=== PATIENT | male | born 1990 ===

== ENCOUNTER 2025-07-13 14:02 | Outpatient (REF) | payer OTHER, SELFPAY ==
[2025-07-13 17:56] LABS: MANUAL DIFF FLAG NO
[2025-07-13 18:02] LABS: Hematocrit 43.9 % (42.0-52.0); Hemoglobin 15.4 g/dl (14.0-18.0); Imm Gran Abs Auto 0.02 X10*3/uL (0.00-0.03); Imm Gran Pct Auto 0.2 % (0.0-0.4); Lymphocytes Absolute Auto 1.8 X10*3/uL (1.2-4.9); Mean Corpuscular HGB Conc 35.1 g/dl (31.0-36.0); Mean Corpuscular Hemoglobin 30.8 pg (27.0-33.0); Mean Corpuscular Volume 87.8 fL (80.0-98.0); NRBC Abs Auto 0.000 X10*3/uL (0.0-0.012); NRBC Pct Auto 0.0 /100WBC (0.0-0.2); Platelet Count 336 X10*3/uL (160-400); Red Blood Count 5.00 X10*6/uL (4.60-5.80); White Blood Count 9.0 X10*3/uL (4.8-10.8)
[2025-07-13 18:17] LABS: Alanine Aminotransferase 38 U/L (0-40); Albumin Level 4.9 g/dL (3.5-5.0); Alkaline Phosphatase 74 U/L (39-117); Anion Gap 15 (12-20); Aspartate Amino Transferase 31 U/L (5-37); Blood Urea Nitrogen 18 mg/dL (9-16); Calcium 9.2 mg/dL (8.4-10.2); Carbon Dioxide 24 mmol/L (22-29); Chloride 105 mmol/L (96-108); Cholesterol 221 mg/dL (<200); Estimated Glomerular Filt Rate > 60; HDL Cholesterol 25 mg/dL (>40); Magnesium 2.1 mg/dL (1.6-2.6); Potassium 3.7 mmol/L (3.3-5.1); Sodium 140 mmol/L (135-145); Total Protein 7.9 g/dL (6.5-8.0); Triglycerides 175 mg/dL (<150)
[2025-07-13 18:20] LABS: Appearance Urine Clear; Glucose Urine UA Negative (Negative); PH 6.5 (5.0-9.0); Specific Gravity - Urine 1.025 (1.005-1.025)
[2025-07-16 04:11] LABS: HBS Num1 24.89 mIU/mL (0-7.99); HBsAGNum1 0.48 S/CO (0.00-0.99); Hepatitis B Surface Antigen Negative (Negative); ~HepC Num1 0.11 S/CO (0.00-0.79); ~Hepatitis B Surface Antibody REACTIVE (Nonreactive); ~Hepatitis C Antibody Nonreactive (Nonreactive)
== END 2025-07-13 14:03 | disposition home or self-care (01) ==
LOC: HO.HKASLDS 14:02
PROVIDERS: Visit Provider Student in an Organized Health Care Education/Training Program
DX: Z00.00 Encounter for general adult medical examination without abnormal findings (principal); Z01.89 Encounter for other specified special examinations; Z71.82 Exercise counseling; Z71.89 Other specified counseling; Z13.1 Encounter for screening for diabetes mellitus; Z13.220 Encounter for screening for lipoid disorders; Z13.6 Encounter for screening for cardiovascular disorders; M25.571 Pain in right ankle and joints of right foot; R03.0 Elevated blood-pressure reading, without diagnosis of hypertension; E66.811 Obesity, class 1; R00.0 Tachycardia, unspecified; Z68.34 Body mass index [BMI] 34.0-34.9, adult
CPT/HCPCS: 36415; 80053; 80061; 81003; 83036; 83735; 85025; 86706; 86803; 87340; 99202

== ENCOUNTER 2025-07-13 14:02 | Outpatient (AMB) | payer OTHER, SELFPAY ==
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
[2025-07-13 14:33] VITALS: BP 146/98; PULSE 107; RESP 16; TEMP 36.4; O2SAT 97; BMI 34.7
== END 2025-07-13 14:58 | disposition home or self-care (01) ==
LOC: HO.HMCFMS 14:02
PROVIDERS: PCP Student in an Organized Health Care Education/Training Program; Visit Provider Student in an Organized Health Care Education/Training Program
DX: M25.571 Pain in right ankle and joints of right foot (principal); R03.0 Elevated blood-pressure reading, without diagnosis of hypertension; E66.811 Obesity, class 1; Z68.34 Body mass index [BMI] 34.0-34.9, adult; R00.0 Tachycardia, unspecified

== ENCOUNTER 2025-07-30 13:36 | Outpatient (AMB) | payer OTHER, SELFPAY ==
--- NOTE | 2025-07-30 13:37 | A.OFFPC_ITS ---
Vital Signs 07/30/25 13:38 Height 5 ft 8.27 in Weight 234 lb 2 oz BMI 35.3 BP 150/78 H Blood Pressure Location Lt brachial Position Sitting Respiration 16 Pulse 127 H Pulse Source Pulse Oximeter Temp 98 F Temp Source Oral Pulse Oximetry (%) 98 Oxygen Delivery Method Room Air Intake Visit Reasons: 2 week follow up Intake Note: pt visit today for leg cramp. lab work requested and xr requested. 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 Prediabetes: - Hemoglobin A1c is 5.8%, indicating pre diabetes. - Advised to reduce carbohydrate and sug ar intake to lower A1c levels. Hyperlipidemia: - Triglycerides are at 175 mg/dL, total cholesterol at 221 mg/dL, and LDL cholesterol at 160 mg/dL, indicating hyperlipidemia. - HDL cholesterol is low at 25 mg/dL. - Dietary modifications recommended, inc luding reducing intake of cheese, dairy, and eggs, and increasing leafy greens. Hypertension: - Blood pressure recorded at 150/78 mmHg , indicating hypertension. - Blood pressure monitoring at home advi sed with a cuff to be provided. - Lifestyle changes including exercise a nd dietary adjustments recommended. Preventative Care: - Hepatitis B vaccination recommended du e to nonreactive antibody status. Review of Systems 10-point ROS reviewed and negative excep t as noted in HPI Past Medical History Health Maintenance - Recommended lifestyle changes include reducing carbohydrate and sugar intake, increasing physical activity to 150 minutes per week, and dietary modifications to lower cholesterol levels. - Hepatitis B vaccination advised due to nonreactive antibody status. Physical Exam General: Well-appearing, in no acute distress. Vital signs: Blood pressure is high today at 150/78. HEENT: Normocephalic, atraumatic. PERRLA, EOMI. Conjunctiva clear, sclera anicteric. Oropharynx clear, mucous membranes moist. TMs intact bilaterally. Neck: Supple, no lymphadenopathy, no thyromegaly, no JVD or carotid bruits. Cardiovascular: RRR, normal S1/S2, no murmurs, rubs, or gallops. Peripheral pulses 2+ and symmetric. No edema. Respiratory: Lungs clear to auscultation bilaterally, no wheezes, rales, or rhonchi. Normal effort. Abdomen: Soft, non-tender, non-distended. Normoactive bowel sounds. No hepatosplenomegaly, no masses. MSK: Full range of motion, no joint swelling or deformity. Normal gait. Skin: Warm, dry, intact. No rashes, lesions, or pallor. Neuro: Alert and oriented x3. Cranial nerves II-XII intact. Strength 5/5 throughout. Sensation intact. Reflexes 2+ symmetric. Normal coordination and gait. Psych: Appropriate mood and affect. Normal judgment and insight. Plan 1. encounter for lab results 2. prediabetes - Advise dietary modifications to reduce carbohydrate and sugar intake to lower A1c levels. - Monitor A1c levels every three months to assess progress. 3. Hyperlipidemia - Recommend dietary changes to reduce in take of high-fat foods and increase consumption of leafy greens. - Re-evaluate lipid profile in future vi sits to monitor improvement. 4. Hypertension - Provide blood pressure cuff for home m onitoring, with instructions to record readings twice daily. - Encourage lifestyle modifications incl uding regular exercise and dietary adjustments. - Follow-up in two weeks to review blood pressure readings and adjust management as needed. 5. Preventative Care - Administer Hepatitis B vaccine due to nonreactive antibody status. Discussion Notes I discussed with the patient the importance of dietary modifications to manage prediabetes and hyperlipidemia, emphasizing the reduction of carbohydrates, sugars, and high-fat foods. We also talked about the need for regular exercise and the use of a blood pressure cuff for home monitoring. I recommended a follow-up visit in two weeks to review blood pressure readings and adjust management as needed. Additionally, I advised the patient to receive the Hepatitis B vaccine due to nonreactive antibody status. Patient Instructions - Reduce intake of carbohydrates and sug ars to help lower A1c levels. - Follow a low-fat diet, increasing leaf y greens and reducing cheese, dairy, and eggs. - Exercise for at least 150 minutes per week, aiming for moderate intensity. - Use the blood pressure cuff to monitor blood pressure twice daily and record the readings. - Return for a follow-up visit in two we eks with recorded blood pressure readings. - Receive the Hepatitis B vaccine as rec ommended. PFSH Family History Father Mini stroke Mother Diabetes Stroke High cholesterol Social History Housing: Condominium Alcohol intake: current Alcohol intake frequency: does not drink Patient Tobacco Use Status: Never used Tobacco service: No Current occupational status: unemployed Cognitive needs: No Hearing needs: No Vision needs: Yes (rx glasses) Questionnaire PHQ-9 Over the last 2 weeks, how often have you been bothered by any of the following problems? 1. Little interest or pleasure in doing things: not at all 2. Feeling down, depressed, or hopeless: not at all 3. Trouble falling or staying asleep, or sleeping too much: not at all 4. Feeling tired or having little energy: not at all 5. Poor appetite or overeating: not at all 6. Feeling bad about yourself - or that you are a failure or have let yourself or your family down: not at all 7. Trouble concentrating on things, such as reading the newspaper or watching television: not at all 8. Moving or speaking so slowly that other people could have noticed. Or the opposite - being so fidgety or restless that you have been moving around a lot more than usual: not at all 9. Thoughts that you would be better off or of hurting yourself in some way: not at all Total score: 0 Source: Developed by Drs. Shen Silva, Bruna Steel, Gwyn Khalil and colleagues, with an educational jennifer from [employer]. Thrive Questionnaire Date Thrive assessed: 07/24/25 I am a: Patient What is your living situation today?: I have a steady place to live Within the past 12 months, did the food you bought not last and you didn't have the money to get more?: I choose not to answer this question Within the past 12 months, did you worry whether your food would run out before you got money to buy more?: I choose not to answer this question Do you have trouble paying for medicines?: No Do you have trouble getting transportation to medical appointments?: No Do you have trouble paying your heating and electricity bill?: No Do you have trouble taking care of your child, family member or friend?: No Do you have trouble with day-to-day activities such as bathing, preparing meals, shopping, managing finances, etc.?: No Are you currently unemployed and looking for a job?: I choose not to answer this question Are you interested in more education?: I choose not to answer this question Please select the resources that you would like help with: None Currently or been in a relationship where the following occur: I choose not to answer THRIVE Score: 0 AUDIT C Alcohol Use Questionnaire (AUDIT-C) 1. How often do you have a drink containing alcohol?: Never Total Score: 0 JAMIN-7 AMB Questionnaire JAMIN-7 Date JAMIN - 7 assessed: 07/13/25 Feeling nervous, anxious, or on edge: 0 = Not at all Not being able to stop or control worryin = Not at all Worrying too much about different things: 0 = Not at all Trouble relaxin = Not at all Being so restless that it is hard to sit still: 0 = Not at all Becoming easily annoyed or irritable: 0 = Not at all Feeling afraid as if something awful might happen: 0 = Not at all Total JAMIN-7 score (0-4 normal; 5-9 mild; 10-14 moderate; 15-21 severe): 0 Source: Developed by Drs. Shen Silva, Bruna Steel, Gwyn Khalil and colleagues, with an educational jennifer from [employer]. Physical exam (Primary Care) Vital Signs: Last Vital Signs Temp 98 F 07/30/25 13:38 Pulse 127 H 07/30/25 13:38 Resp 16 07/30/25 13:38 BP 150/78 H 07/30/25 13:38 Pulse Ox 98 07/30/25 13:38 Oxygen Delivery Method Room Air 07/30/25 13:38 BMI result Body Mass Index 35.3 Tobacco/Smoking Status: Tobacco use Status Tobacco use date assessed 07/13/25 07/30/25 13:44 Patient Tobacco Use Status Never used Tobacco 07/30/25 13:44 PHQ-9: PHQ-9 Score PHQ-9: Total score 0 07/30/25 13:44 Thrive Assessment: Date of Thrive Assessment Date Thrive assessed 07/24/25 07/30/25 13:44 Currently or been in a relationship where the following occur: I choose not to answer Coding Level of Care Code Est Pt Level 3 (08940) Diagnoses Encounter to discuss test results Z71.2 Prediabetes R73.03 Mixed hyperlipidemia E78.2 Elevated blood pressure reading R03.0 Class 2 obesity E66.812 Assessment & Plan Assessment & Plan (1) Encounter to discuss test results: Code(s): Z71.2 - Person consulting for explanation of examination or test findings (2) Prediabetes: Code(s): R73.03 - Prediabetes (3) Mixed hyperlipidemia: Code(s): E78.2 - Mixed hyperlipidemia (4) Elevated blood pressure reading: Code(s): R03.0 - Elevated blood-pressure reading, without diagnosis of hypertension (5) Class 2 obesity: Code(s): E66.812 - Obesity, class 2 Plan Medications: New blood pressure test kit-large ([employer] Blood Pressure Monitor kit) As directed 1 ea 0RF
[2025-07-30 13:38] VITALS: BP 150/78; PULSE 127; RESP 16; TEMP 36.6; O2SAT 98; BMI 35.3
== END 2025-07-30 13:54 | disposition home or self-care (01) ==
LOC: HO.HMCFMS 13:37
PROVIDERS: Visit Provider Student in an Organized Health Care Education/Training Program
DX: R73.03 Prediabetes (principal); E78.2 Mixed hyperlipidemia; E66.812 Obesity, class 2; Z68.33 Body mass index [BMI] 33.0-33.9, adult; R03.0 Elevated blood-pressure reading, without diagnosis of hypertension; Z71.2 Person consulting for explanation of examination or test findings

== ENCOUNTER → 2025-07-30 13:36 | Outpatient (BNVA) | payer OTHER, SELFPAY | PROVIDERS: Visit Provider Student in an Organized Health Care Education/Training Program | DX: Z71.2 Person consulting for explanation of examination or test findings (principal); R73.03 Prediabetes; E78.2 Mixed hyperlipidemia; R03.0 Elevated blood-pressure reading, without diagnosis of hypertension; E66.812 Obesity, class 2; Z68.35 Body mass index [BMI] 35.0-35.9, adult; Z13.30 Encounter for screening examination for mental health and behavioral disorders, unspecified | CPT/HCPCS: 99212 ==

== ENCOUNTER 2025-08-01 12:23 | Outpatient (AMB) | payer OTHER, SELFPAY ==
[2025-08-01 12:35] VITALS: BMI 35.6
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
== END 2025-08-01 13:03 | disposition home or self-care (01) ==
PROVIDERS: PCP Student in an Organized Health Care Education/Training Program; Visit Provider Student in an Organized Health Care Education/Training Program
DX: M76.811 Anterior tibial syndrome, right leg (principal); M21.41 Flat foot [pes planus] (acquired), right foot; M21.42 Flat foot [pes planus] (acquired), left foot; M54.16 Radiculopathy, lumbar region; M67.01 Short Achilles tendon (acquired), right ankle; M79.2 Neuralgia and neuritis, unspecified
CPT/HCPCS: 99204

== ENCOUNTER → 2025-08-01 12:23 | Outpatient (BNVA) | payer OTHER, SELFPAY | PROVIDERS: PCP Student in an Organized Health Care Education/Training Program; Visit Provider Student in an Organized Health Care Education/Training Program | DX: M76.811 Anterior tibial syndrome, right leg (principal); M21.41 Flat foot [pes planus] (acquired), right foot; M21.42 Flat foot [pes planus] (acquired), left foot; M54.16 Radiculopathy, lumbar region; M67.01 Short Achilles tendon (acquired), right ankle | CPT/HCPCS: 99202 ==

== ENCOUNTER 2025-08-13 13:10 | Outpatient (AMB) | payer OTHER, SELFPAY ==
[2025-08-13 13:13] VITALS: BP 143/84; PULSE 105; RESP 16; TEMP 36.8; O2SAT 97; BMI 34.4
--- NOTE | 2025-08-13 13:13 | A.OFFPC_ITS ---
Vital Signs 08/13/25 13:13 Height 5 ft 8 in Weight 226 lb 6 oz BMI 34.4 BP 143/84 H Blood Pressure Location Rt brachial Position Sitting Respiration 16 Pulse 105 H Pulse Source Pulse Oximeter Temp 98.3 F Temp Source Oral Pulse Oximetry (%) 97 Oxygen Delivery Method Room Air Intake Visit Reasons: 2 wk f/u Intake Note: pt visit today for leg cramp. lab work requested and xr requested. Control Panel Tester Required: No Accompanied by: Self / Same As Patient Allergies No Known Allergies Allergy (Verified 08/01/25 12:36) Tobacco use date assessed: 07/13/25 Dental Screening Dental Screen Date: 07/13/25 Did you have a dental visit in the last 12 months?: Yes Did you have a dental problem in the last 6 months where you did not have access to dental care?: No Was dental information given to patient?: Patient has dentist HPI HPI Comments History of Present Illness Details History of Present Illness The patient is a 35-year-old male presenting for hypertension management and follow-up. Essential Hypertension: - Blood pressure readings have been cons istently elevated, with measurements of 146/98 mmHg on 07/13, 150/78 mmHg on 07/30, and 143/84 mmHg today. - The patient has not yet obtained a blo od pressure monitor due to stock issues at the pharmacy. - No known allergies to medications. Weight management: - The patient has intentionally lost elsa ght, decreasing from 234 pounds to 226 pounds through running and exercise. Low back pain: - The patient reports improvement in low back pain, with less pain than previous ly experienced. Review of Systems - Cardiovascular: Reports elevated blood pressure readings. Denies chest pain or palpitations. - Musculoskeletal: Reports improvement i n low back pain. Denies current severe pain. 10-point ROS reviewed and negative excep t as noted in HPI Past Medical History Health Maintenance - Exercise: Patient has started running regularly, contributing to weight loss. Physical Exam General: Well-appearing, in no acute distress. Vital signs: Blood pressure today is 143/84. HEENT: Normocephalic, atraumatic. PERRLA, EOMI. Conjunctiva clear, sclera anicteric. Oropharynx clear, mucous membranes moist. TMs intact bilaterally. Neck: Supple, no lymphadenopathy, no thyromegaly, no JVD or carotid bruits. Cardiovascular: RRR, normal S1/S2, no murmurs, rubs, or gallops. Peripheral pulses 2+ and symmetric. No edema. Respiratory: Lungs clear to auscultation bilaterally, no wheezes, rales, or rhonchi. Normal effort. Abdomen: Soft, non-tender, non-distended. Normoactive bowel sounds. No hepatosplenomegaly, no masses. MSK: Full range of motion, no joint swelling or deformity. Normal gait. Skin: Warm, dry, intact. No rashes, lesions, or pallor. Neuro: Alert and oriented x3. Cranial nerves II-XII intact. Strength 5/5 throughout. Sensation intact. Reflexes 2+ symmetric. Normal coordination and gait. Psych: Appropriate mood and affect. Normal judgment and insight. Plan 1. Essential Hypertension - Initiate amlodipine 10 mg once daily t o manage elevated blood pressure. - Follow-up appointment scheduled in two weeks to monitor blood pressure response. - Patient advised to obtain a blood pres sure monitor for home use. 2. Weight Management - Encourage continuation of current exer cise regimen to maintain weight loss. 3. Low Back Pain - Monitor symptoms and continue current exercise routine as tolerated. Discussion Notes I discussed with the patient the importance of managing his blood pressure and the initiation of amlodipine 10 mg daily. We talked about the need for a follow- up in two weeks to assess the effectiveness of the medication. I also advised him to obtain a blood pressure monitor for home use and to continue his exercise regimen to aid in weight management. The patient was informed to contact me if he experiences any side effects such as lightheadedness. Patient was informed and verbally consented to the use of an ambient scribe for clinic note documentation during this visit. Patient Instructions - Take amlodipine 10 mg once daily as pr escribed. - Schedule a follow-up appointment in tw o weeks. - Obtain a blood pressure monitor for ho me use. - Continue current exercise routine to m aintain weight loss. - Contact the doctor if experiencing any side effects such as lightheadedness. Total time spent caring for the patient today was 30 minutes. This includes time spent before the visit reviewing the chart, time spent documenting, and time spent reviewing laboratory results, diagnostic imaging, medications, performing a medically necessary evaluation, counseling on diagnoses, ordering appropriate medications, review of tests performed by other providers. [facility] Medical History (Updated 08/13/25 @ 13:32 by Leon Stone MD) Hypertension Family History Father Mini stroke Mother Diabetes Stroke High cholesterol Social History Housing: Condominium Alcohol intake: current Alcohol intake frequency: does not drink Patient Tobacco Use Status: Never used Tobacco service: No Current occupational status: unemployed Cognitive needs: No Hearing needs: No Vision needs: Yes (rx glasses) Questionnaire PHQ-9 Over the last 2 weeks, how often have you been bothered by any of the following problems? 1. Little interest or pleasure in doing things: not at all 2. Feeling down, depressed, or hopeless: not at all 3. Trouble falling or staying asleep, or sleeping too much: not at all 4. Feeling tired or having little energy: not at all 5. Poor appetite or overeating: not at all 6. Feeling bad about yourself - or that you are a failure or have let yourself or your family down: not at all 7. Trouble concentrating on things, such as reading the newspaper or watching television: not at all 8. Moving or speaking so slowly that other people could have noticed. Or the opposite - being so fidgety or restless that you have been moving around a lot more than usual: not at all 9. Thoughts that you would be better off or of hurting yourself in some way: not at all Total score: 0 Source: Developed by Drs. Shen Silva, Bruna Steel, Gwyn Khalil and colleagues, with an educational jennifer from [employer]. Thrive Questionnaire Date Thrive assessed: 07/24/25 I am a: Patient What is your living situation today?: I have a steady place to live Within the past 12 months, did the food you bought not last and you didn't have the money to get more?: I choose not to answer this question Within the past 12 months, did you worry whether your food would run out before you got money to buy more?: I choose not to answer this question Do you have trouble paying for medicines?: No Do you have trouble getting transportation to medical appointments?: No Do you have trouble paying your heating and electricity bill?: No Do you have trouble taking care of your child, family member or friend?: No Do you have trouble with day-to-day activities such as bathing, preparing meals, shopping, managing finances, etc.?: No Are you currently unemployed and looking for a job?: I choose not to answer this question Are you interested in more education?: I choose not to answer this question Please select the resources that you would like help with: None Currently or been in a relationship where the following occur: I choose not to answer THRIVE Score: 0 AUDIT C Alcohol Use Questionnaire (AUDIT-C) 1. How often do you have a drink containing alcohol?: Never Total Score: 0 JAMIN-7 AMB Questionnaire JAMIN-7 Date JAMIN - 7 assessed: 07/13/25 Feeling nervous, anxious, or on edge: 0 = Not at all Not being able to stop or control worryin = Not at all Worrying too much about different things: 0 = Not at all Trouble relaxin = Not at all Being so restless that it is hard to sit still: 0 = Not at all Becoming easily annoyed or irritable: 0 = Not at all Feeling afraid as if something awful might happen: 0 = Not at all Total JAMIN-7 score (0-4 normal; 5-9 mild; 10-14 moderate; 15-21 severe): 0 Source: Developed by Drs. Shen Silva, Bruna Steel, Gwyn Khalil and colleagues, with an educational jennifer from [employer]. Physical exam (Primary Care) Vital Signs: Last Vital Signs Temp 98.3 F 08/13/25 13:13 Pulse 105 H 08/13/25 13:13 Resp 16 08/13/25 13:13 BP 143/84 H 08/13/25 13:13 Pulse Ox 97 08/13/25 13:13 Oxygen Delivery Method Room Air 08/13/25 13:13 BMI result Body Mass Index 34.4 Tobacco/Smoking Status: Tobacco use Status Tobacco use date assessed 07/13/25 08/13/25 13:18 Patient Tobacco Use Status Never used Tobacco 08/13/25 13:18 PHQ-9: PHQ-9 Score PHQ-9: Total score 0 08/13/25 13:18 Thrive Assessment: Date of Thrive Assessment Date Thrive assessed 07/24/25 08/13/25 13:18 Currently or been in a relationship where the following occur: I choose not to answer Coding Level of Care Code Est Pt Level 4 (42091) Diagnoses Hypertension I10 Lumbar radiculopathy, right M54.16 Weight loss R63.4 Class 1 obesity E66.811 Assessment & Plan Assessment & Plan (1) Hypertension: Code(s): I10 - Essential (primary) hypertension Category: Medical (2) Lumbar radiculopathy, right: Code(s): M54.16 - Radiculopathy, lumbar region Category: Medical (3) Weight loss: Code(s): R63.4 - Abnormal weight loss (4) Class 1 obesity: Code(s): E66.811 - Obesity, class 1 Plan Medications: New amlodipine 10 mg PO DAILY 30 tabs 0RF I10 - Essential (primary) hypertension
== END 2025-08-13 13:36 | disposition home or self-care (01) ==
LOC: HO.HMCFMS 13:11
PROVIDERS: PCP Student in an Organized Health Care Education/Training Program; Visit Provider Student in an Organized Health Care Education/Training Program
DX: I10 Essential (primary) hypertension (principal); M54.16 Radiculopathy, lumbar region; R63.4 Abnormal weight loss; E66.811 Obesity, class 1

== ENCOUNTER 2025-08-20 11:31 | Outpatient (REF) | payer OTHER, SELFPAY ==
--- NOTE | ~2025-08-20 | XR_ITS ---
EXAMINATION: XR CALCANEUS, RIGHT CLINICAL INFORMATION: M21.41 - Flat foot [pes planus] (acquired), right foot COMPARISON: None available. TECHNIQUE: Lateral and axial views of the right calcaneus were obtained. FINDINGS: The bones and soft tissues are normal. No fracture. Alignment is anatomic. Joint spaces are maintained. No enthesopathic spurs are evident at the calcaneus. XR/XR calcaneus RT min 2V IMPRESSION: Normal right calcaneus. Electronically signed by: Rick David MD 08/21/2025 08:38 AM EDT
--- NOTE | ~2025-08-20 | XR_ITS ---
EXAMINATION: XR TIBIA AND FIBULA, RIGHT CLINICAL INFORMATION: M21.41 - Flat foot [pes planus] (acquired), right foot COMPARISON: None available. TECHNIQUE: AP and lateral views of the right tibia and fibula were obtained. FINDINGS: The bones and soft tissues are normal. No fracture. There is a bone island in the metadiaphysis of the distal tibia. No suspicious bone lesions. XR/XR tibia fibula RT 2V IMPRESSION: Normal right tibia and fibula. Electronically signed by: Rick David MD 08/21/2025 08:41 AM EDT
--- NOTE | ~2025-08-20 | XR_ITS ---
CLINICAL HISTORY: M54.16 - Radiculopathy, lumbar region 5 views lumbar spine Comparison: None provided Findings: Normal alignment. There is straightening of lordosis. No acute fractures or dislocation. No significant degenerative change. IMPRESSION: There is straightening of lordosis suggesting possible muscle spasm. Otherwise unremarkable examination. This document has been electronically signed by: Renetta Fregoso MD on 08/22/2025 16:49:41
--- NOTE | ~2025-08-20 | XR_ITS ---
CLINICAL HISTORY: M21.41 - Flat foot [pes planus] (acquired), right foot --- Additional Notes or Special Instructions: Please perform weight-bearing x-rays Three-view right foot Three-view left foot Comparison: None provided Findings: No fractures or dislocations. No significant arthritic change or erosions. There is bilateral metatarsus varus and pes planus. No ankle effusion. No radiopaque foreign body. IMPRESSION: 1. No acute findings. This document has been electronically signed by: Renetta Fregoso MD on 08/22/2025 16:56:59
== END 2025-08-20 11:32 | disposition home or self-care (01) ==
LOC: HO.XRAY 11:31
PROVIDERS: PCP Student in an Organized Health Care Education/Training Program; Visit Provider Student in an Organized Health Care Education/Training Program
DX: M21.41 Flat foot [pes planus] (acquired), right foot (principal); M21.42 Flat foot [pes planus] (acquired), left foot; M76.811 Anterior tibial syndrome, right leg; M54.16 Radiculopathy, lumbar region
CPT/HCPCS: 72110; 73590; 73630; 73650

== ENCOUNTER → 2025-08-20 11:37 | Outpatient (BNV) | payer OTHER, SELFPAY | PROVIDERS: PCP Student in an Organized Health Care Education/Training Program; Visit Provider Radiology Diagnostic Radiology | DX: M54.16 Radiculopathy, lumbar region (principal); M21.41 Flat foot [pes planus] (acquired), right foot | CPT/HCPCS: 72110; 73590; 73630; 73650 ==

== ENCOUNTER 2025-08-22 12:46 | Outpatient (AMB) | payer OTHER, SELFPAY ==
[2025-08-22 13:10] VITALS: BMI 35.1
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
== END 2025-08-22 13:34 | disposition home or self-care (01) ==
LOC: HO.HPODS 12:47
PROVIDERS: PCP Student in an Organized Health Care Education/Training Program; Visit Provider Student in an Organized Health Care Education/Training Program
DX: M76.811 Anterior tibial syndrome, right leg (principal); M21.41 Flat foot [pes planus] (acquired), right foot; M21.42 Flat foot [pes planus] (acquired), left foot; M54.16 Radiculopathy, lumbar region; M67.01 Short Achilles tendon (acquired), right ankle; M79.2 Neuralgia and neuritis, unspecified
CPT/HCPCS: 99214

== ENCOUNTER → 2025-08-22 12:46 | Outpatient (BNVA) | payer OTHER, SELFPAY | PROVIDERS: PCP Student in an Organized Health Care Education/Training Program; Visit Provider Student in an Organized Health Care Education/Training Program | DX: M76.811 Anterior tibial syndrome, right leg (principal); M21.41 Flat foot [pes planus] (acquired), right foot; M21.42 Flat foot [pes planus] (acquired), left foot; M54.16 Radiculopathy, lumbar region; M67.01 Short Achilles tendon (acquired), right ankle | CPT/HCPCS: 99212 ==

== ENCOUNTER 2025-08-27 13:43 | Outpatient (AMB) | payer OTHER, SELFPAY ==
--- NOTE | 2025-08-27 13:50 | A.OFFPC_ITS ---
Vital Signs 08/27/25 13:51 Height 5 ft 8 in Weight 237 lb 6 oz BMI 36.1 BP 142/79 H Blood Pressure Location Lt brachial Position Sitting Respiration 16 Pulse 107 H Pulse Source Pulse Oximeter Temp 97.9 F Temp Source Oral Pulse Oximetry (%) 97 Oxygen Delivery Method Room Air Intake Visit Reasons: 2 week follow up Intake Note: pt visit today for leg cramp. lab work requested and xr requested. 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 History of Present Illness The patient is a 35-year-old male presenting with a follow-up for essential hypertension management. Essential Hypertension: The patient has a history of essential hypertension for which he was initially seen to manage. He has been on Amlodipine 10 mg, but was unable to record a two- week home blood pressure monitoring log due to not having a blood pressure monitor. In conversation, the patient shared that his current blood pressure readings are approximately 130 mmHg throughout the day, and he claims adherence to medication without experiencing any adverse symptoms such as dizziness. The patient expressed a sense of well-being and believes the medication is effective. Medications: - Amlodipine 10 mg, daily, for hypertens ion management Review of Systems - Cardiovascular: Reports no dizziness o r any concerning symptoms. - General: Reports feeling better and garzon ving a sense that blood pressure is managed effectively. 10-point ROS reviewed and negative excep t as noted in HPI Past Medical History Health Maintenance Physical Exam General: Well-appearing, in no acute distress. Vital signs: Blood pressure recorded as 130/80 mmHg. Within normal limits. HEENT: Normocephalic, atraumatic. PERRLA, EOMI. Conjunctiva clear, sclera anicteric. Oropharynx clear, mucous membranes moist. TMs intact bilaterally. Neck: Supple, no lymphadenopathy, no thyromegaly, no JVD or carotid bruits. Cardiovascular: RRR, normal S1/S2, no murmurs, rubs, or gallops. Peripheral pulses 2+ and symmetric. No edema. Respiratory: Lungs clear to auscultation bilaterally, no wheezes, rales, or rhonchi. Normal effort. Abdomen: Soft, non-tender, non-distended. Normoactive bowel sounds. No h epatosplenomegaly, no masses. MSK: Full range of motion, no joint swelling or deformity. Normal gait. Skin: Warm, dry, intact. No rashes, lesions, or pallor. Neuro: Alert and oriented x3. Cranial nerves II-XII intact. Strength 5/5 throughout. Sensation intact. Reflexes 2+ symmetric. Normal coordination and gait. Psych: Appropriate mood and affect. Normal judgment and insight. Plan 1. Essential Hypertension - Continue with Amlodipine 10 mg daily. -continue with home blood pressure monit oring. - Follow-up visit is scheduled for one m [facility] to evaluate blood pressure control and monitor for any side effects of the medication. Discussion Notes During the visit, I discussed the patient's current status of blood pressure management with Amlodipine 10 mg. The patient reported feeling better and having stable readings. I acknowledged the importance of regular monitoring and recording of blood pressure readings with a home monitor. The plan is to continue the same medication dosage and reevaluate his blood pressure readings at the next scheduled visit in one month. I encouraged the patient to maintain communication regarding any concerns or adverse effects experienced during this period. Patient Instructions - Continue taking Amlodipine 10 mg daily as directed. - continue blood pressure monitoring - Record your blood pressure readings an d bring them to your follow-up visit next month. - Follow up in one month for blood press ure evaluation. - Notify me if you experience any dizzin ess or other concerning symptoms. Medical Decision Making The patient's essential hypertension is currently being managed with Amlodipine 10 mg daily. Given his self-reported average blood pressure of approximately 130 mmHg and lack of adverse symptoms, the medication appears effective. However, for a comprehensive assessment, I have instructed the patient to start home monitoring with a blood pressure monitor, logging results to better inform future treatment decisions. The goal is to maintain stable blood pressure without symptoms. The patient's follow-up in one month will allow for reassessment of efficacy and tolerance of the current treatment regimen and provide an opportunity for any necessary adjustments. Total time spent caring for the patient today was 30n minutes. This includes time spent before the visit reviewing the chart, time spent documenting, and mario e spent reviewing laboratory results, diagnostic imaging, medications, performing a medically necessary evaluation, counseling on diagnoses, care coordination, ordering appropriate tests, ordering appropriate medications. Total time spent caring for the patient today was 30 minutes. This includes time spent before the visit reviewing the chart, time spent documenting, and time spent reviewing laboratory results, diagnostic imaging, medications, performing a medically necessary evaluation, counseling on diagnoses, care coordination. [facility] Medical History (Updated 08/13/25 @ 13:32 by Leon Stone MD) Hypertension Family History Father Mini stroke Mother Diabetes Stroke High cholesterol Social History [facility] Alcohol intake: current Alcohol intake frequency: does not drink Patient Tobacco Use Status: Never used Tobacco service: No Current occupational status: unemployed Cognitive needs: No Hearing needs: No Vision needs: Yes (rx glasses) Questionnaire Thrive Questionnaire Date Thrive assessed: 08/27/25 I am a: Patient What is your living situation today?: I have a steady place to live Within the past 12 months, did the food you bought not last and you didn't have the money to get more?: I choose not to answer this question Within the past 12 months, did you worry whether your food would run out before you got money to buy more?: I choose not to answer this question Do you have trouble paying for medicines?: No Do you have trouble getting transportation to medical appointments?: No Do you have trouble paying your heating and electricity bill?: No Do you have trouble taking care of your child, family member or friend?: No Do you have trouble with day-to-day activities such as bathing, preparing meals, shopping, managing finances, etc.?: No Are you currently unemployed and looking for a job?: I choose not to answer this question Are you interested in more education?: I choose not to answer this question Please select the resources that you would like help with: None Currently or been in a relationship where the following occur: I choose not to answer THRIVE Score: 0 AUDIT C Alcohol Use Questionnaire (AUDIT-C) 1. How often do you have a drink containing alcohol?: Never Total Score: 0 JAMIN-7 AMB Questionnaire JAMIN-7 Date JAMIN - 7 assessed: 08/27/25 Source: Developed by Drs. Shen Silva, Bruna Steel, Gwyn Khalil and colleagues, with an educational jennifer from [employer]. Physical exam (Primary Care) Vital Signs: Last Vital Signs Temp 97.9 F 08/27/25 13:51 Pulse 107 H 08/27/25 13:51 Resp 16 08/27/25 13:51 BP 142/79 H 08/27/25 13:51 Pulse Ox 97 08/27/25 13:51 Oxygen Delivery Method Room Air 08/27/25 13:51 BMI result Body Mass Index 36.1 Tobacco/Smoking Status: Tobacco use Status Tobacco use date assessed 08/27/25 08/27/25 13:53 Patient Tobacco Use Status Never used Tobacco 08/27/25 13:53 Thrive Assessment: Date of Thrive Assessment Date Thrive assessed 08/27/25 08/27/25 13:53 Currently or been in a relationship where the following occur: I choose not to answer Coding Level of Care Code Est Pt Level 4 (51688) Diagnoses Essential hypertension I10 Class 2 obesity E66.812 Assessment & Plan Assessment & Plan (1) Essential hypertension: Code(s): I10 - Essential (primary) hypertension (2) Class 2 obesity: Code(s): E66.812 - Obesity, class 2 Plan
[2025-08-27 13:51] VITALS: BP 142/79; PULSE 107; RESP 16; TEMP 36.6; O2SAT 97; BMI 36.1
== END 2025-08-27 14:42 | disposition home or self-care (01) ==
LOC: HO.HMCFMS 13:44
PROVIDERS: PCP Student in an Organized Health Care Education/Training Program; Visit Provider Student in an Organized Health Care Education/Training Program
DX: I10 Essential (primary) hypertension (principal); E66.812 Obesity, class 2

== ENCOUNTER 2025-09-19 12:33 | Outpatient (AMB) | payer OTHER, SELFPAY ==
[2025-09-19 12:55] VITALS: BMI 36.0
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
--- OUTSIDE RECORDS SUMMARY | 2025-09-19 15:11 | XMS_ITS | Clinical Summary ---
Author Organization [address] [facility] Address [address] [place] [phone] Phone Care Team Providers Care Dining Service Supervisor Name Role Phone Physician, No Pcp Primary Care Provider Unavaila ble Encounters Date Type Department Care Team Description 08/29/2025 2:15 PM EDT Clinic Lab Collection Walk-In Clinic - [address] [id number] from Last 3 Months Social History Tobacco Use Types Packs/Day Years Used Date Smoking Tobacco: Never Assessed Sex and Gender Information Value Date Recorded Sex Assigned at Not on file Legal Sex Male 1:00 AM EST Gender Identity Not on file Sexual Orientation Not on file Plan of Treatment Health Maintenance Due Date Last Done Comments DTaP,Tdap,and Td Vaccines (1 - Tdap) 2007 HPV Vaccines (1 - 3-dose SCDM series) 2015 Depression Screening 11/08/2024 Cholesterol Screening (Lipid Panel) 08/29/2025 HIV Screening 08/29/2025 Hepatitis C Screening 08/29/2025 Social Influencers of Health Screening 08/29/2025 Hepatitis B Vaccines (2 of 2 - CpG 2-dose series) 09/11/2025 08/14/2025 RSV Immunization Adult Patients (1 - 1-dose 75+ series) 2063 COVID-19 Vaccine Completed 08/14/2025, , 09/21/2022, Additional history exists Influenza Vaccine Completed 08/14/2025, , 08/23/2023, Additional history exists HIB Vaccines Aged Out No longer eligi ble based on patient's age to complete this topic Hepatitis A Vaccines Aged Out No long er eligible based on patient's age to complete this topic IPV Vaccines Aged Out No longer eligi ble based on patient's age to complete this topic MMR Vaccines Aged Out No longer eligi ble based on patient's age to complete this topic Meningococcal ACWY Vaccine Aged Out N o longer eligible based on patient's age to complete this topic Meningococcal B Vaccine Aged Out No l onger eligible based on patient's age to complete this topic Pneumococcal Vaccine: Pediatrics (0 to 5 Years) and At-Risk Patients (6 to 49 Years) Aged Out No longer eligible based on patient's age to complete this topic RSV Immunization Patients Under 20 months Aged Out No longer eligible based on patient's age to complete this topic Varicella Vaccines Aged Out No longer eligible based on patient's age to complete this topic Insurance [employer] Member Subscriber Plan / Payer (Ef fective 2025-Present) Name:Saad Howell Member ID:[id number] TRAK Relation to Subscriber:Employee Name:MARANDA COLLIER Subscriber ID:[id number] TRAK Date of :1920 (Home) (Work) Address: [address] [place] [address] Payer ID:[id number] Group ID:Not on file Type:Indemnity Address: [facility] [address] [place] [address] Care Teams Dining Service Supervisor Relationship Specialty Start Date End Date Physician, No Pcp PCP - General 08/29/25
== END 2025-09-19 13:38 | disposition home or self-care (01) ==
LOC: HO.HPODS 12:33
PROVIDERS: PCP Student in an Organized Health Care Education/Training Program; Visit Provider Student in an Organized Health Care Education/Training Program
DX: M76.811 Anterior tibial syndrome, right leg (principal); M21.41 Flat foot [pes planus] (acquired), right foot; M21.42 Flat foot [pes planus] (acquired), left foot; M54.16 Radiculopathy, lumbar region; M67.01 Short Achilles tendon (acquired), right ankle; M79.2 Neuralgia and neuritis, unspecified
CPT/HCPCS: 99213

== ENCOUNTER 2025-09-25 14:08 | Outpatient (AMB) | payer OTHER, SELFPAY ==
--- NOTE | 2025-09-25 14:15 | A.OFFPC_ITS ---
Vital Signs 09/25/25 14:21 Height 5 ft 8 in Weight 231 lb 2 oz BMI 35.1 BP 129/60 Blood Pressure Location Rt brachial Position Sitting Pulse 87 Pulse Source Monitor Temp 97.9 F Temp Source Oral Pulse Oximetry (%) 97 Oxygen Delivery Method Room Air Intake Visit Reasons: 1 month follow up Intake Note: follow up School Resource Officer Required: No Accompanied by: Self / Same As Patient Allergies No Known Allergies Allergy (Verified 09/25/25 14:18) Medication List - Last Reconciled 09/25/25 by Leon Stone MD amlodipine 10 mg PO DAILY blood pressure test kit-large ([facility] Blood Pressure Monitor kit) As directed diclofenac sodium 1% (Voltaren Arthritis Pain) 2 grams topical BID Tobacco use date assessed: 08/27/25 Dental Screening Dental Screen Date: 08/27/25 HPI HPI Comments 2 History of Present Illness Details History of Present Illness The patient is a 35 year old male presenting with follow-up on hypertension management. Essential Hypertension: The patient has a history of hypertension with previous blood pressure readings of 142-143 mmHg. He was prescribed amlodipine 10 mg but stopped taking the medication approximately two weeks ago. The patient has lost 6 pounds since his last visit. Medications: - Amlodipine 10 mg for hypertension, i ch the patient stopped taking two weeks ago. Social History: - Weight management: Patient has achieve d a 6-pound weight loss since the last visit. Past Medical History - Hypertension Health Maintenance - Blood pressure monitoring discussed. - Weight management: Patient has lost 6 pounds since last visit. - Follow-up care: Recommended follow-up in two months for continued monitoring. [facility] Medical History (Updated 08/13/25 @ 13:32 by Leon Stone MD) Hypertension Family History Father Mini stroke Mother Diabetes Stroke High cholesterol Social History (Updated 09/25/25 @ 14:20 by Van Sanchez CMA) Housing: Condominium Alcohol intake: current Alcohol intake frequency: does not drink Patient Tobacco Use Status: Never used Tobacco service: No Current occupational status: unemployed Cognitive needs: No Hearing needs: No Vision needs: Yes (rx glasses) Questionnaire Thrive Questionnaire Date Thrive assessed: 07/24/25 I am a: Patient What is your living situation today?: I have a steady place to live Within the past 12 months, did the food you bought not last and you didn't have the money to get more?: I choose not to answer this question Within the past 12 months, did you worry whether your food would run out before you got money to buy more?: I choose not to answer this question Do you have trouble paying for medicines?: No Do you have trouble getting transportation to medical appointments?: No Do you have trouble paying your heating and electricity bill?: No Do you have trouble taking care of your child, family member or friend?: No Do you have trouble with day-to-day activities such as bathing, preparing meals, shopping, managing finances, etc.?: No Are you currently unemployed and looking for a job?: I choose not to answer this question Are you interested in more education?: I choose not to answer this question Please select the resources that you would like help with: None Currently or been in a relationship where the following occur: I choose not to answer THRIVE Score: 0 JAMIN-7 AMB Questionnaire JAMIN-7 Date JAMIN - 7 assessed: 08/27/25 Source: Developed by Drs. Shen Silva, Bruna Steel, Gwyn Khalil and colleagues, with an educational jennifer from Where I've Been. Review of Systems Narrative Review of Systems - General: Denies any other questions or concerns. 10-point ROS reviewed and negative except as noted in HPI Physical exam (Primary Care) Vital Signs: Last Vital Signs Temp 97.9 F 09/25/25 14:21 Pulse 87 09/25/25 14:21 BP 129/60 09/25/25 14:21 Pulse Ox 97 09/25/25 14:21 Oxygen Delivery Method Room Air 09/25/25 14:21 BMI result Body Mass Index 35.1 Tobacco/Smoking Status: Tobacco use Status Tobacco use date assessed 08/27/25 09/25/25 14:16 Patient Tobacco Use Status Never used Tobacco 09/25/25 14:20 Thrive Assessment: Date of Thrive Assessment Date Thrive assessed 07/24/25 09/25/25 14:16 Currently or been in a relationship where the following occur: I choose not to answer Narrative Physical Exam General: Well-appearing, in no acute distress. Notable weight loss of 6 pounds since last visit. Vital signs: Blood pressure recorded at 129/60, within normal limits. HEENT: Normocephalic, atraumatic. PERRLA, EOMI. Conjunctiva clear, sclera anicteric. Oropharynx clear, mucous membranes moist. TMs intact bilaterally. Neck: Supple, no lymphadenopathy, no thyromegaly, no JVD or carotid bruits. Cardiovascular: RRR, normal S1/S2, no murmurs, rubs, or gallops. Peripheral pulses 2+ and symmetric. No edema. Respiratory: Lungs clear to auscultation bilaterally, no wheezes, rales, or rhonchi. Normal effort. Abdomen: Soft, non-tender, non-distended. Normoactive bowel sounds. No hepatospl enomegaly, no masses. MSK: Full range of motion, no joint swelling or deformity. Normal gait. Skin: Warm, dry, intact. No rashes, lesions, or pallor. Neuro: Alert and oriented x3. Cranial nerves II-XII intact. Strength 5/5 throughout. Sensation intact. Reflexes 2+ symmetric. Normal coordination and gait. Psych: Appropriate mood and affect. Normal judgment and insight. Coding Level of Care Code Est Pt Level 3 (24987) Diagnoses Hypertension I10 Class 2 obesity E66.812 Assessment & Plan Assessment & Plan (1) Hypertension: Code(s): I10 - Essential (primary) hypertension Category: Medical (2) Class 2 obesity: Code(s): E66.812 - Obesity, class 2 Plan Consent Patient was informed and verbally consented to the use of an ambient scribe for clinic note documentation during this visit. Plan 1. Essential Hypertension - The patient's blood pressure is 129/60 mmHg, an improvement from previous readings of 142-143 mmHg. - Despite improvement, the patient stopped taking his amlodipine 10mg about two weeks ago. - A three-month prescription for amlodipine will be sent. - The patient was counseled to resume taking his medication daily. - Continue monitoring blood pressure. - Follow-up is scheduled in approximately two months for continued monitoring. Discussion Notes I reviewed the patient's blood pressure, which was 129/60 mmHg, noting the improvement. We discussed that he had stopped taking his amlodipine 10 mg about two weeks ago. I reinforced the need to continue the medication and sent a three-month refill. I advised him to resume taking it daily, continue monitoring his blood pressure, and to follow up in about two months. Patient Instructions - Please restart your amlodipine 10 mg medication and take it every day. - A three-month supply has been sent to your pharmacy. - Continue to check your blood pressure at home. - Please schedule a follow-up visit in about two months to continue monitoring your blood pressure. Medical Decision Making The patient is a 35-year-old male presenting for a follow-up on his hypertension. His blood pressure is well-controlled at 129/60 mmHg, an improvement from previous readings of 142-143 mmHg, and he has lost 6 pounds since his last visit. The patient reported non-adherence, having stopped his amlodipine 10 mg for the past two weeks. Given his history of elevated blood pressure, continued medication is crucial for long-term management. The decision was made to restart amlodipine 10 mg daily, and a 3-month prescription was provided. The plan includes continued home blood pressure monitoring and a follow-up appointment in two months to reassess. Total Time Statement 20 min Total time spent caring for the patient today includes pre-visit chart review, documentation, review of laboratory and diagnostic imaging results, medication reconciliation, medically necessary evaluation, counseling on diagnoses, care coordination, ordering appropriate tests and medications, review of tests performed by other providers, reporting test results to the patient, and communication with other healthcare providers. Medications: Refilled amlodipine 10 mg PO DAILY 90 tabs 0RF I10 - Essential (primary) hypertension
[2025-09-25 14:21] VITALS: BP 129/60; PULSE 87; TEMP 36.6; O2SAT 97; BMI 35.1
--- OUTSIDE RECORDS SUMMARY | 2025-09-26 09:11 | XMS_ITS | Clinical Summary ---
Author Organization [facility] Address [address] [place] [phone] Phone Care Team Providers Care Diamond Sander Name Role Phone Physician, No Pcp Primary Care Provider Unavaila ble Encounters Date Type Department Care Team Description 08/29/2025 2:15 PM EDT Clinic Lab Collection Walk-In Clinic - [address] [id number] from Last 3 Months Social [...] TRAK Date of :1920 (Home) (Work) Address: [address] [place] [address] Payer ID:[id number] Group ID:Not on file Type:Indemnity Address: [facility] [address] [place] [address] Care Teams Diamond Sander Relationship Specialty Start Date End Date Physician, No Pcp PCP - General 08/29/25
== END 2025-09-25 14:33 | disposition home or self-care (01) ==
LOC: HO.HMCFMS 14:09
PROVIDERS: PCP Student in an Organized Health Care Education/Training Program; Visit Provider Student in an Organized Health Care Education/Training Program
DX: I10 Essential (primary) hypertension (principal); E66.812 Obesity, class 2

== ENCOUNTER → 2025-09-25 14:08 | Outpatient (BNVA) | payer OTHER, SELFPAY | PROVIDERS: PCP Student in an Organized Health Care Education/Training Program; Visit Provider Student in an Organized Health Care Education/Training Program | DX: I10 Essential (primary) hypertension (principal); E66.812 Obesity, class 2; Z68.35 Body mass index [BMI] 35.0-35.9, adult | CPT/HCPCS: 99212 ==